=== PATIENT | male | born 1995 | race African-American/Black ===

== ENCOUNTER 2020-02-23 12:44 | Emergency (ER) | payer OTHER, SELFPAY ==
--- NOTE | ~2020-02-23 | XR_ITS ---
EXAMINATION: XR chest 1V portable DATE: 02/23/2020 13:10 INDICATION: Chest pain and weakness TECHNIQUE: frontal view of the chest was obtained. COMPARISON: None FINDINGS: The lungs are clear with no focal airspace opacities, pulmonary edema, pleural effusion or pneumothor ax. The cardiomediastinal silhouette is normal. Visualized bones and soft tissues are unremarkable. IMPRESSION: 1. Normal chest radiograph. Reviewed, dictated and finalized at location A. IMPRESSION: 1. Normal chest radiograph.
[2020-02-23 12:39] VITALS: BP 130/83; PULSE 102; RESP 17; TEMP 36.8; O2SAT 100
[2020-02-23 12:45] VITALS: PULSE 96
--- NOTE | 2020-02-23 12:47 | ECG_ITS ---
Measurements Intervals [place] Rate: 100 P: 72 VA: 138 QRS: 78 QRSD: 79 T: 43 QT: 317 QTc: 410 Interpretive Statements SINUS TACHYCARDIA RSR' IN V1 OR V2, CONSIDER RIGHT VENTRICULAR HYPERTROPHY OR RIGHT VCD ST ELEVATION IN ANTEROLATERAL LEADS- PROBABLY EARLY REPOLARIZATION BORDERLINE ECG Electronically Signed On 02-24-2020 9:30:55 CDT by Tommy Bee D.O.
[2020-02-23 12:58] LABS: Glucose Point of Care 208 (65-105)
[2020-02-23 13:00] LABS: Basophils Percent Auto 0.4 % (0.2-1.2); Eosinophils Absolute Auto 0.1 K/mm3 (0-0.3); Eosinophils Percent Auto 0.5 % (0-4.4); Hematocrit 45.1 % (42.0-52.0); Hemoglobin 14.9 g/dL (14.0-18.0); Immature Granulocyte Absolute 0.03 K/mm3 (0.00-0.031); Immature Granulocyte Percent A 0.3 % (0-0.5); Lymphocytes Absolute Auto 1.22 K/mm3 (0.9-3.2); Lymphocytes Percent Auto 11.7 % (18.3-44.2); Mean Corpuscular Hemoglobin 30.5 pg (26-34); Mean Corpuscular Volume 92.4 fl (80-100); Mean Platelet Volume 9.8 fl (7.4-10.4); Monocytes Absolute Auto 0.4 K/mm3 (0.1-0.6); Monocytes Percent Auto 3.8 % (2.6-8.5); Neutrophils Absolute Auto 8.7 K/mm3 (1.3-6.7); Neutrophils Percent Auto 83.3 % (45.5-73.1); Platelet Count Result 269 k/mm3 (150-375); Red Blood Count 4.88 M/mm3 (4.6-6.20); Red Cell Distribution Width 12.1 % (11.5-14.5); White Blood Count 10.4 K/mm3 (4.5-10.0)
[2020-02-23 13:10] LABS: INR 1.1; Prothrombin Time 13.4 Seconds (11.1-14.7)
[2020-02-23 13:11] LABS: Partial Thromboplastin Time 25.2 SECONDS (22.3-36.8)
[2020-02-23 13:12] LABS: Blood Urea Nitrogen 12 mg/dL (9-20); Calcium 8.9 mg/dL (8.4-10.2); Carbon Dioxide 20 mmol/L (22-30); Chloride 99 mmol/L (98-107); Estimated CRCL calculation 118 ml/min; Estimated Glomerular Filt Rate > 60; Glucose 220 mg/dL (75-110); Potassium 3.7 mmol/L (3.4-5.0); Sodium 136 mmol/L (137-145)
[2020-02-23 13:24] LABS: Troponin I < 0.012 ng/mL (0.000-0.034)
--- NOTE | 2020-02-23 13:26 | ED.GENADULT ---
HPI - General Adult General Chief complaint: Chest Pain Stated complaint: weakness/cp History of Present Illness HPI narrative: Patient is a 24 y/o male complaining of mid sternal chest pain for last 2 days. There is no pain radiation. He describes his pain as aching. There is no alleviating or exacerbating factor. He also states that his BS has been running high in 400-500s. Related Data Home Medications Medication Instructions Recorded Confirmed insulin lispro [Humalog U-100 1 sliding scale dose SUBCUT 02/23/20 02/23/20 Insulin] USEASDIRECTD Allergies Allergy/AdvReac Type Severity Reaction Status Date / Time tramadol Allergy Unknown Verified 02/23/20 12:46 Review of Systems Constitutional: Constitutional: Denies chills, Denies fever(s), Denies headache(s) and Denies weakness Eyes: Eyes: Denies blurry vision ENT: Denies headache(s) and Denies neck pain Cardiovascular: Cardiovascular: Reports chest pain and Denies dyspnea Respiratory: Respiratory: Denies cough and Denies dyspnea Gastrointestinal: Gastrointestinal: Denies abdominal pain, Denies diarrhea, Denies nausea and Denies vomiting Genitourinary: Genitourinary: Denies hematuria and Denies dysuria Musculoskeletal: Musculoskeletal: Denies back pain and Denies neck pain Neurologic: Denies headache(s) and Denies weakness [facility] Social History Social History Gender identity (if verbalized by the patient): Male Exam Const: General: no acute distress and well developed Orientation/consciousness: oriented to person, oriented to place, oriented to time and patient oriented x3 HENMT: Head: normocephalic Ears: external ears normal General nose exam: Normal external nose present Eyes: General: appearance normal, both eyes and all related structures Conjunctivae: conjunctivae normal Neck: Neck: normal visual inspection and full ROM Chest: Chest palpation & inspection: normal inspection of the chest and no tenderness Resp: Effort & Inspection: normal respiratory effort Auscultation: clear to auscultation bilaterally Cardio: Rate: regular rate Rhythm: regular rhythm GI: GI Palp: No abdominal tenderness and Yes Soft to palpation Skin: General skin exam: normal color and turgor normal Neuro: General: oriented to person, oriented to place, oriented to time and patient oriented x3 Cognition (Neuro): normal cognition Extrem: General: normal to inspection, full ROM and no pedal edema Psych: Appearance: grossly normal Mental Status: mental status grossly normal Affect: normal affect Course Vital Signs Vital signs: Vital Signs Temperature 36.8 C 02/23/20 12:39 Pulse Rate 102 H 02/23/20 12:39 Respiratory Rate 17 02/23/20 12:39 Blood Pressure 130/83 02/23/20 12:39 Pulse Oximetry 100 02/23/20 12:39 Temperature 36.8 C 02/23/20 12:39 Pulse Rate 84 02/23/20 17:01 Respiratory Rate 16 02/23/20 14:17 Blood Pressure 111/74 02/23/20 17:01 Pulse Oximetry 98 02/23/20 14:17 Medical Decision Making MDM Narrative Medical decision making narrative: Initial mildly increased beta hydroxy is noted. Patient may have mild DKA. However, gap closed after hydration. Repeat BMP show no anion gap. Will discharge and have patient take baseline insulin. Vital Signs Vital Signs: Vital Signs Temperature 36.8 C 02/23/20 12:39 Pulse Rate 102 H 02/23/20 12:39 Respiratory Rate 17 02/23/20 12:39 Blood Pressure 130/83 02/23/20 12:39 Pulse Oximetry 100 02/23/20 12:39 Temperature 36.8 C 02/23/20 12:39 Pulse Rate 84 02/23/20 17:01 Respiratory Rate 16 02/23/20 14:17 Blood Pressure 111/74 02/23/20 17:01 Pulse Oximetry 98 02/23/20 14:17 Lab Data Result diagrams: 02/23/20 12:51 02/23/20 15:35 Labs: Lab Results 02/23/20 02/23/20 02/23/20 Range/Units 12:51 12:51 12:51 WBC 10.4 H (4.5-10.0) K/mm3 RBC 4.88
[2020-02-23 13:54] VITALS: BP 110/90; PULSE 99; RESP 14; O2SAT 99
[2020-02-23 13:55] LABS: Beta-Hydroxybutyrate/Acetoacetate 2.88 mmol/L (0.02-0.27)
[2020-02-23 14:17] VITALS: BP 136/80; PULSE 105; RESP 16; O2SAT 98
[2020-02-23 14:44] LABS: Base Excess ABG 1.6 mEq/l (+/-2.0); Fractional Inspired Oxygen 21 %; PCO2 ABG 50.3 mmHg (35.0-45.0); Total Hemoglobin 15.6 g/dL (12.0-18.0); pH ABG 7.363 (7.350-7.450)
[2020-02-23 14:46] LABS: Oxygen Saturation ABG 52.6 % (95.0-100.0); PO2 ABG 29.3 mmHg (80.0-100.0); Site Drawn RIGHT BRACHIAL
[2020-02-23 14:47] LABS: Device ROOM AIR
--- NOTE | 2020-02-23 14:47 | PCRCNOTE ---
BLOOD GAS RAN VENOUS PER DR GUZMÁN
[2020-02-23 16:04] LABS: Troponin I < 0.012 ng/mL (0.000-0.034)
[2020-02-23] MEDS: SODIUM CHLORIDE 0.9% IV 1,000 ML 999 ML IV CONT (16:10)
[2020-02-23 16:33] LABS: Blood Urea Nitrogen 12 mg/dL (9-20); Carbon Dioxide 29 mmol/L (22-30); Chloride 101 mmol/L (98-107); Estimated CRCL calculation 118 ml/min; Estimated Glomerular Filt Rate > 60; Glucose 78 mg/dL (75-110); Potassium 3.7 mmol/L (3.4-5.0); Sodium 136 mmol/L (137-145)
[2020-02-23 17:01] VITALS: BP 111/74; PULSE 84
== END 2020-02-23 17:05 ==
PROVIDERS: Emergency Provider Emergency Medicine
DX: R07.9 Chest pain, unspecified (principal); R00.0 Tachycardia, unspecified; E11.9 Type 2 diabetes mellitus without complications; Z79.4 Long term (current) use of insulin; R94.31 Abnormal electrocardiogram [ECG] [EKG]
CPT/HCPCS: 36415; 36600; 71045; 80048; 82010; 82805; 82948; 84484; 85025; 85610; 85730; 93005; 99284; J7030